=== PATIENT | male | born 1975 | race Caucasian/White ===

== ENCOUNTER 2017-11-14 16:42 | Emergency (ER) | payer BC ==
--- NOTE | 2017-11-14 18:04 | EDM.PDOC ---
ED HPI GENERAL MEDICAL PROBLEM - General Chief Complaint: Abdominal Pain Stated Complaint: STOMACH PAIN Time Seen by Provider: 11/14/17 18:01 Source of Information: Reports: Patient - History of Present Illness INITIAL COMMENTS - FREE TEXT/NARRATIVE: HISTORY AND PHYSICAL: History of present illness: [Patient has had some constipation over the last week intermittent abdominal pain and nausea, Tuesday he was using Pepto-Bismol for the nausea, today he notes black stool as normal formed stool] today No fever vomiting chills sweats no chest pain shortness breath headache dizziness palpitation no urine symptoms Review of systems: As per history of present illness and below otherwise all systems reviewed and negative. Past medical history: As per history of present illness and as reviewed below otherwise noncontributory. Surgical history: As per history of present illness and as reviewed below otherwise noncontributory. Social history: No reported history of drug or alcohol abuse. Family history: As per history of present illness and as reviewed below otherwise noncontributory. Physical exam: HEENT: Atraumatic, normocephalic, pupils reactive, negative for conjunctival pallor or scleral icterus, mucous membranes moist, throat clear, neck supple, nontender, trachea midline. Lungs: Clear to auscultation, breath sounds equal bilaterally, chest nontender. Heart: S1S2, regular, negative for clicks, rubs, or JVD. Abdomen: Soft, nondistended, nontender. Negative for masses or hepatosplenomegaly. Negative for costovertebral tenderness. Pelvis: Stable nontender. Genitourinary: Deferred. Rectal: No stool in rectal vault, guaiac negative no mass scar or lesion internal or external Extremities: Atraumatic, negative for cords or calf pain. Neurovascular unremarkable. Neuro: Awake, alert, oriented. Cranial nerves II through XII unremarkable. Cerebellum unremarkable. Motor and sensory unremarkable throughout. Exam nonfocal. Diagnostics: [CBC CMP UA lipase UA guaiac] Therapeutics: []Reglan 10 mg by mouth 3 times a day when necessary #30 no refill [id number] symptomatic therapies including MiraLAX Cleocin suppository fleets Impression: Constipation Black stools, medication side effect ] Definitive disposition and diagnosis as appropriate pending reevaluation and review of above. - Related Data Allergies Allergy/AdvReac Type Severity Reaction Status Date / Time No Known Allergies Allergy Verified 11/14/17 17:16 Home Meds: Home Meds Esomeprazole [NexIUM] 40 mg PO DAILY 11/14/17 [History] Past Medical History Gastrointestinal History: Reports: GERD Other Gastrointestinal History: recent change in bowels - Infectious Disease History Infectious Disease History: Reports: Chicken Pox - Past Surgical History GI Surgical History: Reports: Appendectomy Musculoskeletal Surgical History: Reports: Shoulder Surgery Social & Family History - Family History Family Medical History: Noncontributory - Tobacco Use Smoking Status *Q: Never Smoker - Caffeine Use Caffeine Use: Reports: Coffee - Recreational Drug Use Recreational Drug Use: No ED ROS GENERAL - Review of Systems Review Of Systems: ROS reveals no pertinent complaints other than HPI. ED EXAM, GENERAL - Physical Exam Exam: See Below Course - Vital Signs Last Recorded V/S: Last Vital Signs Temp 98.2 F 11/14/17 17:13 Pulse 61 11/14/17 17:13 Resp 18 11/14/17 17:13 BP 145/94 H 11/14/17 17:13 Pulse Ox 98 11/14/17 17:13 - Orders/Labs/Meds Orders: Active Orders 24 hr Category Date Time Status Abdomen 2V AP Flat Upright [CR] Stat Exams 11/14/17 17:47 Taken Guaiac [OCCULT BLOOD DIAGNOSTIC] [OP] Stat Lab 11/14/17 17:23 Ordered UA W/MICROSCOPIC [URIN] Stat Lab 11/14/17 17:43 Ordered Labs: Laboratory Tests 11/14/17 11/14/17 11/14/17 Range/Units 17:30 17:30 17:43 WBC 9.52 (4.0-11.0) K/uL RBC 5.06 (4.50-5.90) M/uL Hgb 15.3 (13.0-17.0) g/dL Hct 44.9 (38.0-50.0) % MCV 88.7 (80.0-98.0) fL MCH 30.2 (27.0-32.0) pg MCHC 34.1 (31.0-37.0) g/dL RDW Std Deviation 41.5 (28.0-62.0) fl RDW Coeff of Yee 13 (11.0-15.0) % Plt Count 290 (150-400) K/uL MPV 9.30 (7.40-12.00) fL Neut % (Auto) 59.2 (48.0-80.0) % Lymph % (Auto) 33.0 (16.0-40.0) % [place] % (Auto) 6.3 (0.0-15.0) % Eos % (Auto) 1.2 (0.0-7.0) % Baso % (Auto) 0.3 (0.0-1.5) % Neut # (Auto) 5.6 (1.4-5.7) K/uL Lymph # (Auto) 3.1 H (0.6-2.4) K/uL [place] # (Auto) 0.6 (0.0-0.8) K/uL Eos # (Auto) 0.1 (0.0-0.7) K/uL Baso # (Auto) 0.0 (0.0-0.1) K/uL Nucleated RBC % 0.0 /100WBC Nucleated RBCs # 0 K/uL Sodium 142 (136-148) mmol/L Potassium 4.0 (3.5-5.1) mmol/L Chloride 107 (98-107) mmol/L Carbon Dioxide 24.5 (21.0-32.0) mmol/L BUN 17 (7.0-18.0) mg/dL Creatinine 1.3 (0.8-1.3) mg/dL Est Cr Clr Drug Dosing 73.27 mL/min Estimated GFR (MDRD) > 60.0 ml/min Glucose 66 L (74-106) mg/dL Calcium 9.2 (8.5-10.1) mg/dL Total Bilirubin 0.3 (0.2-1.0) mg/dL AST 23 (15-37) IU/L ALT 63 (14-63) IU/L Alkaline Phosphatase 62 (46-116) U/L Total Protein 7.4 (6.4-8.2) g/dL Albumin 4.0 (3.4-5.0) g/dL Globulin 3.4 (2.0-3.5) g/dL Albumin/Globulin Ratio 1.2 L (1.3-2.8) Lipase 200 (73-393) U/L Urine Color YELLOW Urine Appearance CLEAR Urine pH 6.0 (5.0-8.0) Ur Specific [place] 1.020 (1.001-1.035) Urine Protein NEGATIVE (NEGATIVE) mg/dL Urine Glucose (UA) NEGATIVE (NEGATIVE) mg/dL Urine Ketones NEGATIVE (NEGATIVE) mg/dL Urine Occult Blood TRACE-LYSED (NEGATIVE) Urine Nitrite NEGATIVE (NEGATIVE) Urine Bilirubin NEGATIVE (NEGATIVE) Urine Urobilinogen 0.2 (<2.0) EU/dL Ur Leukocyte Esterase NEGATIVE (NEGATIVE) Urine RBC 0-1 (0-2/HPF) Urine WBC 0-1 (0-5/HPF) Ur Epithelial Cells RARE (NONE-FEW) Urine Bacteria RARE (NEGATIVE) Departure - Departure Time of Disposition: 18:19 Disposition: Home, Self-Care 01 Condition: Good Clinical Impression: Constipation - Discharge Information Referrals: PCP,None [Primary Care Provider] - Forms: ED Department Discharge Additional Instructions: Clear liquid diet until stool passes Apple juice or prune juice may benefit MiraLAX 17 g by mouth daily Glycerin suppositories, fleets enemas, and Reglan as prescribed All of the above may be used in conjunction with each other Return if symptoms persist or worsen Black stool is likely side effect of Pepto-Bismol giving the use history, normal lab values including occult stool blood negative Follow-up with primary care in 2 weeks sooner as needed [facility] - [facility] [address] [place] [address] The following information is given to patients seen in the emergency department who are being discharged to home. This information is to outline your options for follow-up care. We provide all patients seen in our emergency department with a follow-up referral. The need for follow-up, as well as the timing and circumstances, are variable depending upon the specifics of your emergency department visit. If you don't have a primary care physician on staff, we will provide you with a referral. We always advise you to contact your personal physician following an emergency department visit to inform them of the circumstance of the visit and for follow-up with them and/or the need for any referrals to a consulting specialist. The emergency department will also refer you to a specialist when appropriate. This referral assures that you have the opportunity for follow-up care with a specialist. All of these measure are taken in an effort to provide you with optimal care, which includes your follow-up. Under all circumstances we always encourage you to contact your private physician who remains a resource for coordinating your care. When calling for follow-up care, please make the office aware that this follow-up is from your recent emergency room visit. If for any reason you are refused follow-up, please contact the [facility] emergency department at and asked to speak to the emergency department charge nurse. - My Orders Last 24 Hours: My Active Orders 11/14/17 17:23 Guaiac [OCCULT BLOOD DIAGNOSTIC] [OP] Stat 11/14/17 17:43 UA W/MICROSCOPIC [URIN] Stat 11/14/17 17:47 Abdomen 2V AP Flat Upright [CR] Stat - Assessment/Plan Last 24 Hours: My Active Orders 11/14/17 17:23 Guaiac [OCCULT BLOOD DIAGNOSTIC] [OP] Stat 11/14/17 17:43 UA W/MICROSCOPIC [URIN] Stat 11/14/17 17:47 Abdomen 2V AP Flat Upright [CR] Stat
[2017-11-14 18:12] LABS: CHLORIDE,CL 107 mmol/L (98-107); SODIUM,NA 142 mmol/L (136-148)
--- NOTE | 2017-11-14 19:17 | CR ---
EXAM DATE: 11/14/17 PATIENT'S AGE: 42 Patient: NANCI JUNIOR Facility: [place] [place] Site . Site : [id number] Study: XRay Abdomen [id number] 6:08:08 PM Ordering Physician: Alber Gilmore Final Report: INDICATION: Abdominal pain. Nausea. Black stools. TECHNIQUE: Flat and upright views of the abdomen and pelvis. FINDINGS: No free air on the upright image. Nonspecific bowel gas pattern. Scattered gas and stool throughout portions of the colon particularly the right hemicolon and transverse colon. No convincing evidence for fecal impaction or significant colonic constipation. Further imaging such as with CT should be based on clinical grounds. No radiodense urinary tract calculi identified. IMPRESSION: 1. Nonspecific bowel gas pattern without obstruction or ileus. 2. No free air. Dictated by Huan Doan MD @ Nov 14 2017 6:26PM (Electronic Signature) Report Signed by Proxy. PHAM
== END 2017-11-14 18:32 | disposition home or self-care (01) ==
LOC: MW.ED 16:42
DX: K59.00 Constipation, unspecified (principal); K92.1 Melena; T47.6X5A Adverse effect of antidiarrheal drugs, initial encounter; K21.9 Gastro-esophageal reflux disease without esophagitis; Z90.49 Acquired absence of other specified parts of digestive tract; Z79.899 Other long term (current) drug therapy
CPT/HCPCS: 36415; 74019; 74019-26; 80053; 81001; 83690; 85025; 99283

== ENCOUNTER 2019-04-13 08:05 | Emergency (ER) | payer BC ==
[2019-04-13] MEDS ORDERED: Acetaminophen/HYDROcodone 325-10 MG Tab PO ONE (08:15)
--- NOTE | 2019-04-13 08:16 | EDM.PDOC ---
ED HPI GENERAL MEDICAL PROBLEM - General Chief Complaint: Back Pain or Injury Stated Complaint: LEFT LOWER BACK PAIN Time Seen by Provider: 04/13/19 08:16 Source of Information: Reports: Patient - History of Present Illness INITIAL COMMENTS - FREE TEXT/NARRATIVE: HISTORY AND PHYSICAL: History of present illness: [Seferino is followed by Dr. garcía Mathews, he has had low back pain for 3 weeks with a left sciatic distribution radiation, this began after lifting a bag of potting soil. He has seen care nurse rn and is now undergoing physical therapy has not attended but it is scheduled and will begin next week, he has not had any imaging has generally been improving over the last 3 weeks however today bent down to pick an object off the ground and ended up lying on the sidewalk as he was in severe pain 8 out of 10 on arrival has improved with hydrocodone he has been taking hydrocodone last taken last night at 6 PM Repeat dose pain is 0 out of 10 he is able to move his leg no footdrop saddle anesthesia bowel or urine symptoms patient states he is much improved ] Review of systems: As per history of present illness and below otherwise all systems reviewed and negative. Past medical history: As per history of present illness and as reviewed below otherwise noncontributory. Surgical history: As per history of present illness and as reviewed below otherwise noncontributory. Social history: No reported history of drug or alcohol abuse. Family history: As per history of present illness and as reviewed below otherwise noncontributory. Physical exam: HEENT: Atraumatic, normocephalic, pupils reactive, negative for conjunctival pallor or scleral icterus, mucous membranes moist, throat clear, neck supple, nontender, trachea midline. Lungs: Clear to auscultation, breath sounds equal bilaterally, chest nontender. Heart: S1S2, regular, negative for clicks, rubs, or JVD. Abdomen: Soft, nondistended, nontender. Negative for masses or hepatosplenomegaly. Negative for costovertebral tenderness. Pelvis: Stable nontender. Genitourinary: Deferred. Rectal: Deferred. Extremities: Atraumatic, negative for cords or calf pain. Neurovascular unremarkable. initial straight leg raise with heel 3 inches off the bed increased radiculopathy , currently patient is able to move his leg with some repositioning no further pain behaviors Neuro: Awake, alert, oriented. Cranial nerves II through XII unremarkable. Cerebellum unremarkable. Motor and sensory unremarkable throughout. Exam nonfocal. Diagnostics: [Lumbar spine ] Therapeutics: [ Mendez O Follow-up with primary care for consideration of MRI and continued physical therapy ] Impression: [ low back pain Sciatic distribution pain on left Ur ] Definitive disposition and diagnosis as appropriate pending reevaluation and review of above. L back pain Pain Score (Numeric/FACES): 8 - Related Data Allergies Allergy/AdvReac Type Severity Reaction Status Date / Time No Known Allergies Allergy Verified 11/14/17 17:16 Home Meds: Home Meds Esomeprazole [NexIUM] 40 mg PO DAILY 11/14/17 [History] oxyCODONE HCl/Acetaminophen [Oxycodone-Acetaminophen 5-325] 1 tab PO TID PRN [History] Past Medical History Gastrointestinal History: Reports: GERD Other Gastrointestinal History: recent change in bowels - Infectious Disease History Infectious Disease History: Reports: Chicken Pox - Past Surgical History GI Surgical History: Reports: Appendectomy Musculoskeletal Surgical History: Reports: Shoulder Surgery Social & Family History - Family History Family Medical History: Noncontributory - Caffeine Use Caffeine Use: Reports: Coffee ED ROS GENERAL - Review of Systems Review Of Systems: See Below ED EXAM, GENERAL - Physical Exam Exam: See Below Course - Vital Signs Last Recorded V/S: Last Vital Signs Temp 96.3 F 04/13/19 08:12 Pulse 79 04/13/19 08:12 Resp 18 04/13/19 08:12 BP 153/93 H 04/13/19 08:12 Pulse Ox 96 04/13/19 08:12 - Orders/Labs/Meds Meds: Medications Discontinued Medications Generic Name Dose Route Start Last Admin Trade Name Freq PRN Reason Stop Dose Admin Hydrocodone Bitart/Acetaminophen 1 tab 04/13/19 08:15 04/13/19 08:21 [place] 325-10 Mg PO 04/13/19 08:16 1 tab ONETIME ONE Administration Departure - Departure Time of Disposition: 09:38 Disposition: Home, Self-Care 01 Condition: Good Clinical Impression: Low back pain - Discharge Information Referrals: PCP,None [Primary Care Provider] - Forms: ED Department Discharge Additional Instructions: The following information is given to patients seen in the emergency department who are being discharged to home. This information is to outline your options for follow-up care. We provide all patients seen in our emergency department with a follow-up referral. The need for follow-up, as well as the timing and circumstances, are variable depending upon the specifics of your emergency department visit. If you don't have a primary care physician on staff, we will provide you with a referral. We always advise you to contact your personal physician following an emergency department visit to inform them of the circumstance of the visit and for follow-up with them and/or the need for any referrals to a consulting specialist. The emergency department will also refer you to a specialist when appropriate. This referral assures that you have the opportunity for follow-up care with a specialist. All of these measure are taken in an effort to provide you with optimal care, which includes your follow-up. Under all circumstances we always encourage you to contact your private physician who remains a resource for coordinating your care. When calling for follow-up care, please make the office aware that this follow-up is from your recent emergency room visit. If for any reason you are refused follow-up, please contact the [facility] emergency department at and asked to speak to the emergency department charge nurse.
--- NOTE | 2019-04-13 08:58 | CR ---
INDICATION: Back pain. COMPARISON: None. TECHNIQUE: Three views of the lumbar spine. FINDINGS: Vertebral body heights are maintained. Minimal retrolisthesis of L3 on L4 and L4 on L5. Alignment is otherwise within normal limits. Intervertebral disc spaces are preserved. Facet arthropathy in the lower lumbar spine. IMPRESSION: No acute osseous abnormality. Lower lumbar spine facet degenerative change. Dictated by Sylvain Joy MD @ Apr 13 2019 8:54AM Signed by Dr. Sylvain Joy @ Apr 13 2019 8:57AM
== END 2019-04-13 09:52 | disposition home or self-care (01) ==
LOC: MW.ED 08:05
DX: M54.42 Lumbago with sciatica, left side (principal); K21.9 Gastro-esophageal reflux disease without esophagitis; Z90.49 Acquired absence of other specified parts of digestive tract; Z79.899 Other long term (current) drug therapy
CPT/HCPCS: 72100; 99283; A9270

== ENCOUNTER 2022-07-11 17:21 | Emergency (ER) | payer BC ==
[2022-07-11] MEDS ORDERED: Alum Hydro/Mag Hydro/Simeth XS 15 ML, Metoclopramide 5 MG, Lidocaine 2% 5 ML PO ONE ×3 (19:44)
[2022-07-11 20:43] LABS: CARBON DIOXIDE,CO2 26.5 mmol/L (21.0-32.0); POTASSIUM,K 4.1 mmol/L (3.5-5.1)
[2022-07-11] MEDS ORDERED: Omeprazole 20 MG Cap.CR PO ONE (20:54)
== END 2022-07-11 21:21 | disposition home or self-care (01) ==
LOC: MW.ED 17:21
DX: R10.13 Epigastric pain (principal); K21.9 Gastro-esophageal reflux disease without esophagitis; Z79.899 Other long term (current) drug therapy
CPT/HCPCS: 36415; 71045; 80053; 83690; 84484; 85025; 99284; A9270